=== PATIENT | female | born 2000 | race Two or more races ===

== ENCOUNTER 2025-02-04 14:53 | Emergency (ER) | payer MEDICAID, OTHER ==
[~2025-02-04] VITALS: Ht 160 cm; Wt 72.0 kg
--- NOTE | 2025-02-04 15:32 | ED.PDOC ---
HPI Allergic reaction HPI Comments This is a 24 year old female presenting to the ED with chief complaint of rash. Patient reports that she started to experience a rash to her bilateral arms, hands, legs, and chest with associated itchiness since this morning. Patient relays that she took Benadryl at 2pm with some relief in her itchiness and rash noted. Patient denies any SOB, throat swelling, or fever. Chief Complaint: Rash Time Seen by MD: 15:31 Reviewed Notes: Nurses Notes, Medications, Allergies Allergies: Coded Allergies: NO KNOWN ALLERGIES (Unverified , 02/04/25) Home Meds Active Scripts Omeprazole (Gnp Omeprazole) 20 Mg Tab, 1 TAB PO BID for 5 Days, #10 TAB 1 Refill Prov:THEA RABAGO MD 02/04/25 Prednisone (Prednisone) 20 Mg Tab, 20 MG PO BID for 5 Days, #10 MG Prov:THEA RABAGO MD 02/04/25 Information Source: Patient Mode of Arrival: Ambulatory Severity: Mild Rash: Mild SOB: None Difficulty swallowing: None Pruritus: Mild Timing: Hours Duration: Since onset Prehospital treatment: None Location: Arm, Chest, Hand, Leg Exposed to: Unknown Developed: Pruritus, Rash History of: None Modyifying Factors: Diphenhydramine Past Medical History PAST MEDICAL HISTORY: Denies Surgical History: Denies all surgeries CHAIRMAN PRESIDENT AND CHIEF EXECUTIVE OFFICER History: No Pertinent CHAIRMAN PRESIDENT AND CHIEF EXECUTIVE OFFICER History Family History Family History: Reviewed,noncontributory to illness Social History Smoker: Non-Smoker Alcohol: Denies ETOH Use Drugs: Denies Drug Use Lives In: Home Constitutional: denies: chills, diaphoresis, fatigue, fever, malaise, sweats, weakness, others EENTM: denies: blurred vision, double vision, ear bleeding, ear discharge, ear drainage, ear pain, ear ringing, eye pain, eye redness, hearing loss, mouth pain, mouth swelling, nasal discharge, nose bleeding, nose congestion, nose pain, photophobia, tearing, throat pain, throat swelling, voice changes, others Respiratory: denies: cough, hemoptysis, orthopnea, SOB at rest, shortness of breath, SOB with excertion, stridor, wheezing, others Cardiovascular: denies: chest pain, dizzy spells, diaphoresis, Dyspnea on exertion, edema, irregular heart beat, left arm pain, lightheadedness, palpitations, PND, syncope, others Gastrointestinal: denies: abdomen distended, abdominal pain, blood streaked bowels, constipated, diarrhea, dysphagia, difficulty swallowing, hematemesis, melena, nausea, poor appetite, poor fluid intake, rectal bleeding, rectal pain, vomiting, others Genitourinary: denies: abnormal vagina bleeding, burning, dyspareunia, dysuria, flank pain, frequency, hematuria, incontinence, pain, , vagina discharge, urgency, others Neurological: denies: dizziness, fainting, headache, left sided numbness, left sided weakness, numbness, paresthesia, pre-existing deficit, right sided numbness, right sided weakness, seizure, speech problems, tingling, tremors, weakness, others Musculoskeletal: denies: back pain, gout, joint pain, joint swelling, muscle pain, muscle stiffness, neck pain, others Integumetry: denies: bruises, change in color, change in hair/nails, dryness, laceration, lesions, lumps, rash, wounds, others Allergic/Immunocompromised: reports: Hives, Itching; denies: Difficulty Healing, Frequent Infections, others Hematologic/Lymphatic: denies: anemia, blood clots, easy bleeding, easy bruising, swollen glands, others Endocrine: denies: excessive hunger, excessive sweating, excessive thirst, excessive urination, flushing, intolerance to cold, intolerance to heat, unexplained weight gain, unexplained weight loss, others Psychiatric: denies: anxiety, bipolar disorder, depression, hopeless, panic disorder, schizophrenia, sleepless, suicidal, others All Other Systems: Reviewed and Negative Physical Exam General Appearance: No Apparent Distress, Normal HEENT: Normal ENT Inspection, PERRL/EOMI, Pharynx Normal, TMs Normal Neck: Full Range of Motion, Non-Tender, Normal, Normal Inspection Respiratory: Chest Non-Tender, Lungs Clear, No Accessory Muscle Use, No Respiratory Distress, Normal Breath Sounds Cardiovascular: No Edema, No JVD, No Murmur, No Gallop, Normal Peripheral Pulses, Regular Rate/Rhythm Breast Exam: Deferred Gastrointestinal: No Organomegaly, Non Tender, No Pulsatile Mass, Normal Bowel Sounds, Soft Genitalia: Deferred Pelvic: Deferred Rectal: Deferred Extremities: No calf tenderness, Normal capillary refill, Normal inspection, Normal range of motion, Non-tender, No pedal edema Musculoskeletal : Apperance: Normal Neurologic: Alert, bufferer II-XII nml as Tested, No Motor Deficits, Normal Affect, Normal Mood, No Sensory Deficits Cerebellar Function: Normal Reflexes: Normal Skin: Dry, Normal Color, Warm, Other (Urticarial skin reaction) Peripheral Pulses: 1+ carotid (R), 1+ carotid (L) Lymphatic: No Adenopathy Was a procedure done? Was a procedure done?: No Differential diagnosis (all) Differential Diagnosis: Contact Dermatitis, Drug Reaction, Urticaria X-Ray, Labs, Meds, VS Vital Signs Date Time Temp Pulse Resp B/P (MAP) Pulse Ox O2 Delivery O2 Flow Rate FiO2 02/04/25 14:55 98.4 83 18 147/93 100 98.4 X-Ray, Labs, Meds, VS Comment Patient came to the [facility] with a rash that duration of 24 hours It is diffuse in his urticaria it is red patchy inflammatory and itchy Patient will be discharged home Time of 1ST Reevaluation: 15:40 Reevaluation 1ST: Unchanged Time of 2ND Reevaluation: 15:42 Reevaluation 2ND: Improved Consultation: PCP Patient Education/Counseling: Diagnosis, Treatment, Prognosis, Need For Follow Up Family Education/Counseling: Diagnosis, Treatment, Prognosis, Need For Follow Up, No Family Present SEPSIS Sepsis Screen Date sepsis recognized/suspect: Feb 04, 2025 Time Sepsis recognized/suspect: 1456 Recent Procedure: No (T) On Antibiotic Therapy: No Respiratory Rate >20: No Heart Rate >90: No Temp<36 C (96.8 F) or >38.3 C: No SBP <90 or MAP <65 mmHG: No New Acute Mental Status Change: No Is the patient on CPAP, BIPAP,: No Vital Signs Date Time Temp Pulse Resp B/P (MAP) Pulse Ox O2 Delivery O2 Flow Rate FiO2 02/04/25 14:55 98.4 83 18 147/93 100 98.4 Departure 1 Departure Time of Disposition: 15:34 Impression: Primary Impression: Urticaria Disposition: HOME / SELF CARE / HOMELESS Condition: Fair Additional Instructions: Push fluids and follow up with your PCP e-Prescriptions Omeprazole (Gnp Omeprazole) 20 Mg Tab 1 TAB PO BID for 5 Days, #10 TAB 1 Refill Prov: THEA RABAGO MD 02/04/25 Prednisone (Prednisone) 20 Mg Tab 20 MG PO BID for 5 Days, #10 MG Prov: THEA RABAGO MD 02/04/25 Discharged With: Self Critical Care Note Critical Care Time?: No Stability Stability form required: No Heart Score Heart Score: Heart Score Response (Comments) Value History N/A 0 EKG N/A 0 Age <45 0 Risk Factors No known risk factors 0 Troponin N/A 0 Total 0 I personally scribed for THEA RABAGO MD ([email or web address]) on 02/04/25 at 15:32. Elec tronically submitted by Willie Meza ([email or web address]). THEA RABAGO MD Feb 04, 2025 15:32
[2025-02-04] MEDS ORDERED: OMEP20TA PO (15:38)
[2025-02-04] MEDS ORDERED: PRED20TA2 PO (15:38)
[2025-02-04 16:16] VITALS: BP 118/69; PULSE 79; RESP 16; TEMP 98.1; O2SAT 98
== END 2025-02-04 16:23 | disposition home or self-care (01) ==
LOC: ER 14:53
DX: L50.9 Urticaria, unspecified (principal); Z79.899 Other long term (current) drug therapy; Z79.52 Long term (current) use of systemic steroids

== ENCOUNTER 2025-02-05 11:28 | Emergency (ER) | payer MEDICAID ==
[~2025-02-05] VITALS: Ht 160 cm; Wt 65.0 kg
[~2025-02-05 11:28] MED LIST: OMEP20TA PO; PRED20TA2 PO
--- NOTE | 2025-02-05 12:09 | ED.PDOC ---
History of Present Illness HPI Comments 24F presents to the ER w/ no prior MHx associated to the c/c of a rash. Pt reports on getting the rash 2 days ago and having had itchiness "everywhere" and has been unable to identify the problem. Pt went to the ER yesterday and was prescribed medication such as prednisone. Pt notes on taking Benadryl this m orning before coming to the ER. Social Hx of nicotine gum, and Marijuana use. Denies chills, fever, N/V/D, SOB, CP. Denies any other associated symptom's, modifiers, or recent injuries or sick contact at this time. Chief Complaint: Rash Time Seen by MD: 12:00 Reviewed Notes: Nurses Notes, Medications, Allergies Allergies: Coded Allergies: NO KNOWN ALLERGIES (Unverified , 02/04/25) Home Meds Active Scripts Omeprazole (Gnp Omeprazole) 20 Mg Tab, 1 TAB PO BID for 5 Days, #10 TAB 1 Refill Prov:THEA RABAGO MD 02/04/25 Prednisone (Prednisone) 20 Mg Tab, 20 MG PO BID for 5 Days, #10 MG Prov:THEA RABAGO MD 02/04/25 Information Source: Patient Mode of Arrival: Ambulatory Severity: Moderate Timing: Days Duration: Since onset, Days Prehospital treatment: None Past Medical History PAST MEDICAL HISTORY: Denies Surgical History: Denies all surgeries HELPDESK ADMINISTRATOR History: No Pertinent HELPDESK ADMINISTRATOR History Family History Family History: Reviewed,noncontributory to illness, Unknown Social History Smoker: Other (nicotine gum) Alcohol: Denies ETOH Use Drugs: Marijuana Lives In: Home Constitutional: denies: chills, diaphoresis, fatigue, fever, malaise, sweats, weakness, others EENTM: denies: blurred vision, double vision, ear bleeding, ear discharge, ear drainage, ear pain, ear ringing, eye pain, eye redness, hearing loss, mouth pain, mouth swelling, nasal discharge, nose bleeding, nose congestion, nose pain, photophobia, tearing, throat pain, throat swelling, voice changes, others Respiratory: denies: cough, hemoptysis, orthopnea, SOB at rest, shortness of breath, SOB with excertion, stridor, wheezing, others Cardiovascular: denies: chest pain, dizzy spells, diaphoresis, Dyspnea on exertion, edema, irregular heart beat, left arm pain, lightheadedness, palpitations, PND, syncope, others Gastrointestinal: denies: abdomen distended, abdominal pain, blood streaked bowels, constipated, diarrhea, dysphagia, difficulty swallowing, hematemesis, melena, nausea, poor appetite, poor fluid intake, rectal bleeding, rectal pain, vomiting, others Genitourinary: denies: abnormal vagina bleeding, burning, dyspareunia, dysuria, flank pain, frequency, hematuria, incontinence, pain, , vagina discharge, urgency, others Neurological: denies: dizziness, fainting, headache, left sided numbness, left sided weakness, numbness, paresthesia, pre-existing deficit, right sided numbness, right sided weakness, seizure, speech problems, tingling, tremors, weakness, others Musculoskeletal: denies: back pain, gout, joint pain, joint swelling, muscle pain, muscle stiffness, neck pain, others Integumetry: reports: rash; denies: bruises, change in color, change in hair/nails, dryness, laceration, lesions, lumps, wounds, others Allergic/Immunocompromised: denies: Difficulty Healing, Frequent Infections, Hives, Itching, others Hematologic/Lymphatic: denies: anemia, blood clots, easy bleeding, easy bruising, swollen glands, others Endocrine: denies: excessive hunger, excessive sweating, excessive thirst, excessive urination, flushing, intolerance to cold, intolerance to heat, unexplained weight gain, unexplained weight loss, others Psychiatric: denies: anxiety, bipolar disorder, depression, hopeless, panic disorder, schizophrenia, sleepless, suicidal, others All Other Systems: Reviewed and Negative Physical Exam General Appearance: Mild Distress HEENT: Normal ENT Inspection, Pharynx Normal, TMs Normal Neck: Full Range of Motion, Non-Tender, Normal, Normal Inspection Respiratory: Chest Non-Tender, Lungs Clear, No Accessory Muscle Use, No Respiratory Distress, Normal Breath Sounds Cardiovascular: No Edema, No JVD, No Murmur, No Gallop, Normal Peripheral Pulses, Regular Rate/Rhythm Breast Exam: Deferred Gastrointestinal: No Organomegaly, Non Tender, No Pulsatile Mass, Normal Bowel Sounds, Soft Genitalia: Deferred Pelvic: Deferred Rectal: Deferred Extremities: No calf tenderness, Normal capillary refill, Normal inspection, Normal range of motion, Non-tender, No pedal edema Musculoskeletal : Apperance: Normal Neurologic: Alert, hoop bender tank II-XII nml as Tested, No Motor Deficits, Normal Affect, Normal Mood, No Sensory Deficits Cerebellar Function: Normal Reflexes: Normal Skin: Dry, Rash (Generalized rash to the extremities as well as chest and back area), Warm Lymphatic: No Adenopathy Was a procedure done? Was a procedure done?: No Differential Dx Considerations may include: Cellulitis, generalized weakness X-Ray, Labs, Meds, VS Vital Signs Date Time Temp Pulse Resp B/P (MAP) Pulse Ox O2 Delivery O2 Flow Rate FiO2 02/05/25 13:02 99 16 100 Room Air 02/05/25 13:02 98.7 89 16 138/74 (95) 100 98.7 02/05/25 11:30 98.3 102 15 146/93 100 98.3 Current Medications Medications (Trade) Dose Ordered Sig/Dewey Route Start Time Stop Time Status Last Admin Sodium Chloride 1,000 ml @ 1,000 mls/hr Q1H ONCE IV 02/05/25 12:15 02/05/25 13:14 DC 02/05/25 12:59 Diphenhydramine HCl (Benadryl Injection) 25 mg ONCE ONCE IV 02/05/25 12:15 02/05/25 12:16 DC 02/05/25 13:07 Methylprednisolone Sodium Succinate (Solu Medrol) 125 mg ONCE ONCE IV 02/05/25 12:15 02/05/25 12:16 DC 02/05/25 13:07 The patient had an IV Hep-Lock and was given a 1 L bolus of normal saline The patient was given Benadryl 25 mg IV push The patient was given Solu-Medrol 125 mg IV push The patient states that she is feeling better The patient is given no medication at this time because she is taking Benadryl and has a prescription of prednisone The patient will return to the emergency department's the condition worsens. Time of 1ST Reevaluation: 12:30 Reevaluation 1ST: Unchanged Patient Education/Counseling: Diagnosis, Treatment, Prognosis, Need For Follow Up Family Education/Counseling: No Family Present SEPSIS Sepsis Screen Date sepsis recognized/suspect: Feb 05, 2025 Time Sepsis recognized/suspect: 1133 Recent Procedure: No On Antibiotic Therapy: No Respiratory Rate >20: No Heart Rate >90: No Temp<36 C (96.8 F) or >38.3 C: No SBP <90 or MAP <65 mmHG: No New Acute Mental Status Change: No Is the patient on CPAP, BIPAP,: No Physician Orders Heplock Iv (02/05/25 12:03) Vital Signs Date Time Temp Pulse Resp B/P (MAP) Pulse Ox O2 Delivery O2 Flow Rate FiO2 02/05/25 13:02 99 16 100 Room Air 02/05/25 13:02 98.7 89 16 138/74 (95) 100 98.7 02/05/25 11:30 98.3 102 15 146/93 100 98.3 Medications Medications Dose Ordered Sig/Dewey Route Start Time Stop Time Status Last Admin Dose Admin Diphenhydramine HCl 25 mg ONCE ONCE IV 02/05/25 12:15 02/05/25 12:16 DC 02/05/25 13:07 Methylprednisolone Sodium Succinate 125 mg ONCE ONCE IV 02/05/25 12:15 02/05/25 12:16 DC 02/05/25 13:07 Sodium Chloride 1,000 ml @ 1,000 mls/hr Q1H ONCE IV 02/05/25 12:15 02/05/25 13:14 DC 02/05/25 12:59 Departure 1 Departure Time of Disposition: 14:34 Impression: Primary Impression: Urticaria Disposition: 01 HOME / SELF CARE / HOMELESS Condition: Fair Discharged With: Self Critical Care Note Critical Care Time?: No Stability Stability form required: No Heart Score Heart Score: Heart Score Response (Comments) Value History N/A 0 EKG N/A 0 Age N/A 0 Risk Factors N/A 0 Troponin N/A 0 Total 0 I personally scribed for CIARAN GUPTA MD ([email or web address]) on 02/05/25 at 12:09. Electronically submitted by Adrian Benedict ([email or web address]). CIARAN GUPTA MD Feb 05, 2025 12:09
[2025-02-05] MEDS: SODIUM CHLORIDE 0.9% 1,000 ML IV ONE (12:59)
[2025-02-05] MEDS: methylPREDNISolone SOD SUCC 125 MG/2 ML VL IV ONE (13:07)
[2025-02-05] MEDS: diphenhdrAMINE HCL 50 MG/1 ML VL IV ONE (13:07)
[2025-02-05 14:46] VITALS: BP 126/86; PULSE 66; RESP 16; TEMP 98.7; O2SAT 96
== END 2025-02-05 14:47 | disposition home or self-care (01) ==
LOC: ER 11:28
DX: L50.9 Urticaria, unspecified (principal); F17.200 Nicotine dependence, unspecified, uncomplicated; Z79.899 Other long term (current) drug therapy
CPT/HCPCS: 96361; 96374; 96375; 99284; J1200; J2919; J7030